=== PATIENT | male | born 1985 | race Two or more races ===

== ENCOUNTER 2017-08-07 23:01 | Emergency (ER) | payer SELFPAY ==
[2017-08-07 23:50] LABS: Hematocrit 44 % (42-52); Hemoglobin 15.1 g/dl (14.0-18.0); Mean Corpuscular HGB Conc 34 g/dl (31-36); Mean Corpuscular Hemoglobin 32 pg (27-31); Mean Corpuscular Volume 93 fL (80-94); Mean Platelet Volume 8.9 um3 (7.4-10.4); Platelet Count 267 10^3/ul (150-450); Red Blood Count 4.73 10^6/ul (4.00-5.40); Red Cell Distribution Width 13 % (10.5-15); White Blood Count 17.9 10^3/ul (3.5-10.8)
--- NOTE | 2017-08-07 23:55 | ED ---
Throat Pain/Nasal Congestion - HPI Summary HPI Summary: Patient from [place] 2 weeks ago complains of sub fever, chills, sore throat, ISLAS , ear pain, body aches, heavy breathing 3 days. Denies cough, CP, neck pain, nasal discharge, N/V/D, abdominal pain, change in urine or BM. Medical history is none. Took Advil prior to arrival positive smoker, occasional EtOH, denies illegal drugs. - History of Current Complaint Chief Complaint: EDFever Time Seen by Provider: 08/07/17 23:17 Hx Obtained From: Patient Onset/Duration: Gradual Onset Severity: Moderate Associated Signs And Symptoms: Positive: Negative Cough: None - Epiglottits Risk Factors Epiglottis Risk Factors: Negative - Allergies/Home Medications Allergies/Adverse Reactions: Allergies Allergy/AdvReac Type Severity Reaction Status Date / Time No Known Allergies Allergy Verified 08/07/17 23:08 PMH/Surg Hx/FS Hx/Imm Hx Endocrine/Hematology History: Denies: Hx Anticoagulant Therapy Cardiovascular History: Denies: Hx Cardiac Arrest History: Denies: Hx Dialysis Neurological History: Denies: Hx CVA Infectious Disease History: No Infectious Disease History: Reports: Traveled Outside the [place] in Last 30 Days - Social History Alcohol Use: Occasionally Hx Substance Use: No Hx Tobacco Use: Yes Smoking Status (MU): Former Smoker Review of Systems Positive: Fever, Chills Eyes: Negative Positive: Sore Throat, Ear Ache Cardiovascular: Negative Respiratory: Negative Gastrointestinal: Negative Genitourinary: Negative Positive: Myalgia Skin: Negative Positive: Headache Psychological: Normal All Other Systems Reviewed And Are Negative: Yes Physical Exam Triage Information Reviewed: Yes Vital Signs On Initial Exam: Initial Vitals Temp Pulse Resp BP Pulse Ox 98.1 F 95 18 133/100 99 08/07/17 23:04 08/07/17 23:04 08/07/17 23:04 08/07/17 23:04 08/07/17 23:04 Vital Signs Reviewed: Yes Appearance: Positive: Well-Appearing Skin: Positive: Warm Head/Face: Positive: Normal Head/Face Inspection Eyes: Positive: Normal ENT: Positive: TMs normal, Uvula midline. Negative: Pharyngeal erythema, Nasal congestion, Tonsillar swelling, Tonsillar exudate, Trismus, Muffled voice, Hoarse voice Neck: Positive: Supple Respiratory/Lung Sounds: Positive: Clear to Auscultation Cardiovascular: Positive: Normal Abdomen Description: Positive: Nontender Musculoskeletal: Positive: Normal Neurological: Positive: Normal Psychiatric: Positive: Normal AVPU Assessment: Alert - [employer] Coma Scale Best Eye Response: 4 - Spontaneous Best Motor Response: 6 - Obeys Commands Best Verbal Response: 5 - Oriented Coma Scale Total: 15 Diagnostics - Vital Signs Vital Signs Temp Pulse Resp BP Pulse Ox 08/07/17 23:04 98.1 F 95 18 133/100 99 - Laboratory Lab Results: Lab Results 08/07/17 Range/Units 23:39 WBC 17.9 H (3.5-10.8) 10^3/ul RBC 4.73 (4.00-5.40) 10^6/ul Hgb 15.1 (14.0-18.0) g/dl Hct 44 (42-52) % MCV 93 (80-94) fL MCH 32 H (27-31) pg MCHC 34 (31-36) g/dl RDW 13 (10.5-15) % Plt Count 267 (150-450) 10^3/ul MPV 8.9 (7.4-10.4) um3 Neut % (Auto) Pending Lymph % (Auto) Pending Mccormick % (Auto) Pending Eos % (Auto) Pending Baso % (Auto) Pending Absolute Neuts (auto) Pending Absolute Lymphs (auto) Pending Absolute Monos (auto) Pending Absolute Eos (auto) Pending Absolute Basos (auto) Pending Absolute Nucleated RBC Pending Nucleated RBC % Pending Monoscreen Pending Result Diagrams: 08/07/17 23:39 08/07/17 23:39 Lab Statement: Any lab studies that have been ordered have been reviewed, and results considered in the medical decision making process. EENT Course/Dx - Course Course Of Treatment: Patient from [place] 2 weeks ago complains of sub fever, chills, sore throat, ISLAS, ear pain, body aches, heavy breathing 3 days. Denies cough, CP, neck pain, nasal discharge, N/V/D, abdominal pain, change in urine or BM. Medical history is none. Took Advil prior to arrival positive smoker, occasional EtOH, denies illegal drugs. Vital signs within normal limits and stable. White count of 17.9. Elevated CRP. Does not meet SIRS criteria. Symptoms started today. Flu, strep, mono negative, but Mother tested positive for flu, patient sleeping in same room as his mother. Rx for Tamiflu. Lidocaine viscus for sore throat - Diagnoses Provider Diagnoses: Viral syndrome Discharge - Sign-Out/Discharge Documenting (check all that apply): Discharge/Admit/Transfer - Discharge Plan Condition: Stable Disposition: HOME Prescriptions: Lidocaine 2% VISCOUS* [Xylocaine 2% Viscous*] 15 ml SWISH SPIT Q6H PRN #1 btl PRN Reason: Pain Oseltamivir CAP* [Tamiflu CAP*] 75 mg PO BID 5 Days #9 cap Patient Education Materials: Viral Syndrome (ED) Referrals: No Primary Care Phys,NOPCP [Primary Care Provider] - Additional Instructions: Tylenol or ibuprofen for fever control, and body aches. Follow-up with primary care. Return to the ED for any new or worsening symptoms - Billing Disposition and Condition Condition: STABLE Disposition: Home
[2017-08-08 00:06] LABS: EGFR Non-African American 86.1 (>60)
[2017-08-08 00:11] LABS: ABS Basophils 0.1 10^3/ul (0-0.2); ABS Eosinophils 0.2 10^3/ul (0-0.6); ABS Lymphocytes 1.6 10^3/ul (1.0-4.8); ABS Monocytes 1.8 10^3/ul (0-0.8); ABS Neutrophils 14.2 10^3/ul (1.5-7.7); ABS Nucleated RBC 0 10^3/ul; Eosinophil % 1.2 % (0-6); Lymphocyte % 8.9 % (25-47); Nucleated Red Blood Cells % 0
[2017-08-08] MEDS ORDERED: Lidocaine 2% VISCOUS* 15 ML UDC PO ONE ×2 (00:26→01:15)
[2017-08-08] MEDS ORDERED: Oseltamivir CAP* 75 MG CAP PO ONE (01:15)
[2017-08-08 02:24] VITALS: BP 123/70
== END 2017-08-08 01:45 | disposition home or self-care (01) ==
LOC: EDBD → ED 23:01
DX: B34.9 Viral infection, unspecified (principal); R51 Headache; R50.9 Fever, unspecified; J02.9 Acute pharyngitis, unspecified; Z87.891 Personal history of nicotine dependence
CPT/HCPCS: 36415; 80053; 83605; 85025; 86140; 86308; 87502; 87651; 99282; A9270-GY